=== PATIENT | female | born 1985 | race African-American/Black ===

== ENCOUNTER → 2016-10-14 10:15 | Outpatient (CLI) | payer MEDICAID ==
[~2016-10-14 10:15] MED LIST: FERROUS SULFAT325 MG PO; MOTRIN600 MG PO; PERCOCET 10/3251 TA1 PO
[2016-10-14 11:16] LABS: BASOPHILS 0.3 % (0.0-2.0); EOSINOPHILS 4.4 % (0-7); HEMATOCRIT 31.4 % (36.0-48.0); HEMOGLOBIN 9.8 g/dL (12-16); IMMATURE GRANULOCYTES 0.1 % (0-5); LYMPHOCYTES 16.6 % (15-50); MCHC 31.2 g/dL (31.0-37.0); MCV 83.3 fL (80.0-100.0); MEAN PLATELET VOLUME 10.6 fL (7.4-10.4); MONOCYTES 6.1 % (2-11); NEUTROPHILS 72.5 % (40-80); RBC 3.77 10x6/uL (4.00-5.40); RDW 15.7 % (11.5-14.5); WBC 8.8 10x3/uL (4.8-10.8)
[2016-10-14 11:22] LABS: PLATELET COUNT 234 10x3/uL (130-400)
[2016-10-14 11:33] LABS: CALC OSMOLALITY 269 mosm/kg (275-300); CALCIUM 8.2 mg/dL (8.5-10.1); CARBON DIOXIDE 24.3 mmol/L (21.0-32.0); CHLORIDE - SERUM 104 mmol/L (98-107); CREATININE - SERUM 0.8 mg/dL (0.6-1.3); POTASSIUM - SERUM 3.4 mmol/L (3.5-5.1); SODIUM 135 mmol/L (136-145); UREA NITROGEN 9 mg/dL (7-18); URIC ACID 4.9 mg/dL (2.6-7.2); eGFR NON AFRICAN AMERICAN 89 mL/min (90-120)
[2016-10-14 11:34] LABS: GLUCOSE 113 mg/dL (74-106)
[2016-10-28 08:19] VITALS: BMI 36.7
== END | disposition home or self-care (01) ==
LOC: D.LDO 10:15
PROVIDERS: Obstetrics & Gynecology
DX: Z34.83 Encounter for supervision of other normal pregnancy, third trimester (principal); Z3A.35 35 weeks gestation of pregnancy

== ENCOUNTER → 2016-10-17 12:35 | Outpatient (CLI) | payer MEDICAID ==
[2016-10-28 08:19] VITALS: BMI 36.7
== END | disposition home or self-care (01) ==
LOC: D.LDO 12:35
DX: O13.3 Gestational [pregnancy-induced] hypertension without significant proteinuria, third trimester (principal); Z3A.35 35 weeks gestation of pregnancy

== ENCOUNTER → 2016-10-21 10:20 | Outpatient (CLI) | payer MEDICAID ==
[2016-10-21 11:50] LABS: BASOPHILS 0.3 % (0.0-2.0); HEMATOCRIT 30.2 % (36.0-48.0); HEMOGLOBIN 9.5 g/dL (12-16); IMMATURE GRANULOCYTES 0.3 % (0-5); LYMPHOCYTES 15.4 % (15-50); MCH 26.1 pg (26.0-34.0); MCHC 31.5 g/dL (31.0-37.0); MEAN PLATELET VOLUME 10.3 fL (7.4-10.4); MONOCYTES 9.7 % (2-11); NEUTROPHILS 69.3 % (40-80); PLATELET COUNT 230 10x3/uL (130-400); RBC 3.64 10x6/uL (4.00-5.40); RDW 16.7 % (11.5-14.5); WBC 9.2 10x3/uL (4.8-10.8)
[2016-10-21 11:51] LABS: APPEARANCE SLT CLOUDY (CLEAR); BILIRUBIN NEGATIVE (NEGATIVE); COLOR YELLOW (YELLOW); GLUCOSE NEGATIVE (NEGATIVE); KETONE NEGATIVE (NEGATIVE); LEUKOCYTE ESTERASE NEGATIVE (NEGATIVE); NITRITE NEGATIVE (NEGATIVE); PROTEIN NEGATIVE (NEGATIVE); SPECIFIC GRAVITY 1.015 (1.005-1.020)
[2016-10-21 12:03] LABS: ALBUMIN 2.5 g/dL (3.4-5.0); BILIRUBIN - DIRECT 0.05 mg/dL (0.00-0.30); BILIRUBIN - INDIRECT 0.16 mg/dL (0.00-1.00); BILIRUBIN - TOTAL 0.21 mg/dL (0.2-1.3); PROTEIN - SERUM 5.9 g/dL (6.4-8.2); URIC ACID 4.9 mg/dL (2.6-7.2)
[2016-10-21 13:04] LABS: CALC OSMOLALITY 276 mosm/kg (275-300); CALCIUM 8.6 mg/dL (8.5-10.1); CARBON DIOXIDE 27.9 mmol/L (21.0-32.0); CHLORIDE - SERUM 106 mmol/L (98-107); CREATININE - SERUM 0.8 mg/dL (0.6-1.3); GLUCOSE 98 mg/dL (74-106); SODIUM 140 mmol/L (136-145); UREA NITROGEN 7 mg/dL (7-18); eGFR NON AFRICAN AMERICAN 89 mL/min (90-120)
[2016-10-23 11:51] LABS: PROTEIN - URINE 17.7 mg/dL (0.0-11.9)
[2016-10-28 08:19] VITALS: BMI 36.7
== END | disposition home or self-care (01) ==
LOC: D.LDO 10:20
PROVIDERS: Obstetrics & Gynecology
DX: O16.3 Unspecified maternal hypertension, third trimester (principal); Z3A.36 36 weeks gestation of pregnancy

== ENCOUNTER → 2016-10-24 10:25 | Outpatient (CLI) | payer MEDICAID ==
[2016-10-24 10:50] LABS: APPEARANCE HAZY (CLEAR); BILIRUBIN NEGATIVE (NEGATIVE); COLOR YELLOW (YELLOW); GLUCOSE NEGATIVE (NEGATIVE); KETONE NEGATIVE (NEGATIVE); LEUKOCYTE ESTERASE NEGATIVE (NEGATIVE); NITRITE NEGATIVE (NEGATIVE); PROTEIN NEGATIVE (NEGATIVE); SPECIFIC GRAVITY 1.015 (1.005-1.020); UROBILINOGEN NORMAL (NORMAL)
[2016-10-28 08:19] VITALS: BMI 36.7
== END | disposition home or self-care (01) ==
LOC: D.LDO 10:25
PROVIDERS: Obstetrics & Gynecology
DX: Z34.93 Encounter for supervision of normal pregnancy, unspecified, third trimester (principal); Z3A.36 36 weeks gestation of pregnancy

== ENCOUNTER → 2016-10-26 12:30 | Outpatient (CLI) | payer MEDICAID ==
[2016-10-28 08:19] VITALS: BMI 36.7
== END | disposition home or self-care (01) ==
LOC: D.LDO 12:30
DX: O16.3 Unspecified maternal hypertension, third trimester (principal); Z3A.36 36 weeks gestation of pregnancy

== ENCOUNTER 2016-10-28 08:01 | Inpatient (IN) | payer MEDICAID ==
[~2016-10-28] VITALS: Ht 170.2 cm; Wt 106.1 kg
[2016-10-28] MEDS ORDERED: FERROUS SULFAT325 MG PO (08:17)
[2016-10-28 08:19] VITALS: BP 142/87; Ht 170.2 cm; Wt 106.1 kg
[2016-10-28 09:31] LABS: HEMATOCRIT 32.3 % (36.0-48.0); HEMOGLOBIN 10.2 g/dL (12-16); MCH 25.9 pg (26.0-34.0); MCHC 31.6 g/dL (31.0-37.0); RBC 3.94 10x6/uL (4.00-5.40); RDW 16.2 % (11.5-14.5); WBC 10.6 10x3/uL (4.8-10.8)
[2016-10-28 12:42] LABS: UDS - AMPHET NEGATIVE QUAL (NEGATIVE); UDS - BARB NEGATIVE QUAL (NEGATIVE); UDS - BENZO NEGATIVE QUAL (NEGATIVE); UDS - COCAINE NEGATIVE QUAL (NEGATIVE); UDS - METH NEGATIVE QUAL (NEGATIVE); UDS - OPIATE NEGATIVE QUAL (NEGATIVE); UDS - PCP NEGATIVE QUAL (NEGATIVE); UDS - THC NEGATIVE QUAL (NEGATIVE)
[2016-10-28 17:04] VITALS: BP 133/83
[2016-10-28 17:04] LABS: BASOPHILS 0.3 % (0.0-2.0); EOSINOPHILS 3.5 % (0-7); HEMATOCRIT 33.4 % (36.0-48.0); HEMOGLOBIN 10.5 g/dL (12-16); IMMATURE GRANULOCYTES 0.2 % (0-5); LYMPHOCYTES 23.7 % (15-50); MCH 25.9 pg (26.0-34.0); MCHC 31.4 g/dL (31.0-37.0); MCV 82.5 fL (80.0-100.0); MEAN PLATELET VOLUME 10.7 fL (7.4-10.4); MONOCYTES 7.4 % (2-11); NEUTROPHILS 64.9 % (40-80); PLATELET COUNT 214 10x3/uL (130-400); RBC 4.05 10x6/uL (4.00-5.40); RDW 16.4 % (11.5-14.5); WBC 8.8 10x3/uL (4.8-10.8)
--- NOTE | 2016-10-28 17:17 | NUR ---
PT IS RECEIVED FROM RECOVERY ROOM. GEN- AWAKE AND ALERT. LUNGS-CLEAR. HEART- RRR. ABD -SOFT, WITH TENDERNESS NOTED. BIKINI LINE INCISION WITH PRIMAPORE DRESSING. CLEAN, DRY, INTACT. AKBAR PAD WITH SMALL LOCIA RUBRA. EXT SCD'S INTACT. IV IS NOTED R HAND, PATENT. SALINE LOCK L AC PATENT. TURNER INTACT AND SECURED TO R THIGH. BED IS LOW. CALL LIGHT IN REACH. SIDE RAILS UP X 2.
--- NOTE | 2016-10-28 18:00 | NUR ---
PT ART EDUCATION PROFESSOR LIGHT. STATES SHE THREW UP WATER SHE WAS DRINKING. APPROX 300 ML NOTED IN BLUE BAG. JODY RN ADMINISTERED ZOFRAN IVP. CHANGED PTS BEDDING AND BLUE AND PINK PADS WITH ASSISTANCE OF LESLIE LOJA. LARGE AMOUNT OF LOCHIA RUBRA NOTED TO BOTTOM SHEET WITH 3 LARGE CLOTS. PT TOLERATED WELL. PT DENIES OTHER NEEDS AT THIS TIME. BED LOW. PHONE AND CALL LIGHT IN REACH. SIDE RAILS UP X2.
[2016-10-28 19:18] VITALS: BP 134/77
--- NOTE | 2016-10-28 19:18 | NUR ---
RCVD PT FROM Tamir GAGE, RN DAY SHIFT. PT SITTING UP IN BED HOLDING . FAMILY AT BEDSIDE. SAMMIE BUSTOS, RN TO ROOM AT THIS TIME TO TAKE INFANT TO NURSERY FOR ASSESSMENT. PT VERBALIZES UNDERSTANDING OF POC. SHIFT ASSESSMENT COMPLETED AT THIS TIME. BREATH SOUNDS CLEAR AND UNLABORED X2. BOWEL SOUNDS ACTIVE X3, HYPO IN LLQ. PT REPORTS FEELING NAUSEATED SINCE AM AFTER TAKING IRON PILL BEFORE COMING INTO L&D. ALSO REPORTS EMESIS @ APPROX 1800. PT STATES "I THINK I NEED TO EAT SOMETHING BECAUSE I TOOK THAT PILL ON AN EMPTY STOMACH AND I HAVEN'T EATEN ALL DAY." CHICKEN BROTH PROVIDED PER PT REQUEST. PT ADV TO TAKE SLOW SIPS AT THIS TIME. PT VERBALIZES UNDERSTANDING. SCD'S ON, CONNECTED TO PUMP. PUMP NOTED TO BE OFF, THIS RN TURNED ON SCD PUMP AND PUMP NOTED TO BE FUNCTIONING PROPERLY. PT HAS PIV TO RT HAND WITH NS WITH 20 U PITOCIN INFUSING @ 125 ML/HR VIA PUMP, DEMEROL TELETYPEWRITER OPERATOR INFUSING WELL PER ORDERS. SEE EMAR. PT HAS BLI WITH BULKY DRESSING IN PLACE AT THIS TIME. DRESSING IS C/D/I. MOD LOCHIA RUBRA NOTED ON TOWEL @ PERINIUM. PERIPADS PLACED AT THIS TIME. PT RATES PAIN 8/10 CURRENT AND REPORTS CONSISTENT USE OF TELETYPEWRITER OPERATOR AT THIS TIME. WILL REVIEW EMAR AND PLAN TO GIVE TORADOL ORDERED. PT DENIES FURTHER NEEDS AT THIS TIME. BED LOW, WHEELS LOCKED, CL IN REACH AND FUNCTIONING. SIDE RAILS UP X2.
--- NOTE | 2016-10-28 19:45 | NUR ---
TORADOL 30MG/1ML GIVEN SLOW IVP PER ORDERS. SEE EMAR. PT DENIES FURTHER NEEDS AT THIS TIME. WILL CONTINUE POC.
[2016-10-28 20:00] LABS: BASOPHILS 0.2 % (0.0-2.0); EOSINOPHILS 0.9 % (0-7); HEMATOCRIT 32.7 % (36.0-48.0); HEMOGLOBIN 10.3 g/dL (12-16); IMMATURE GRANULOCYTES 0.4 % (0-5); LYMPHOCYTES 11.3 % (15-50); MCH 25.9 pg (26.0-34.0); MCHC 31.5 g/dL (31.0-37.0); MCV 82.2 fL (80.0-100.0); MEAN PLATELET VOLUME 10.6 fL (7.4-10.4); MONOCYTES 7.4 % (2-11); NEUTROPHILS 79.8 % (40-80); PLATELET COUNT 228 10x3/uL (130-400); RBC 3.98 10x6/uL (4.00-5.40); RDW 16.3 % (11.5-14.5)
[2016-10-28 20:05] LABS: WBC 13.1 10x3/uL (4.8-10.8)
[2016-10-28 20:15] VITALS: BP 135/74
--- NOTE | 2016-10-28 20:15 | NUR ---
PAIN REASSESSMENT COMPLETED. PT RATES PAIN 5/10 AND SAYS "IT'S EASING UP SOME NOW." PUMPS CLEARED AT THIS TIME. 100 OUTPUT AND INPUT 147 AT THIS TIME. PT DENIES FURTHER NEEDS. WILL CONTINUE TO MONITOR.
--- NOTE | 2016-10-28 21:15 | NUR ---
PT REFUSED LOPRESSOR DOSE AT THIS TIME DUE TO B/P OF 135/74. WILL CONTINUE TO MONITOR V/S. 100 OUTPUT NOTED AND PUMPS CLEARED AT THIS TIME WITH 147 INPUT NOTED. PT REPOSITIONS SELF IN BED. PT DENIES FURTHER NEEDS.
--- NOTE | 2016-10-28 21:19 | NUR ---
DR. DAY CALLED REQUESTING H/H RESULTS THAT WERE DRAWN AROUND 1999. RESULTS GIVEN TO DR. DAY.
--- NOTE | 2016-10-28 21:31 | NUR ---
PT'S BOYFRIEND TO NURSE DESK REPORTING PT THROWING UP. UPON ENTERING ROOM PT REPORTS FEELING "A BUBBLE POPPED OUT DOWN THERE." UPON ASSESSMENT LARGE AMOUNT OF BLOOD WITH SEVERAL QUARTER SIZED CLOTS NOTED TO BE PULLED BETWEEN PT AND TOWEL PLACED @ PT'S PERINEUM. PT STATES "I GOT SICK AND THREW UP AND JUST FELT IT GUSH OUT DOWN THERE." EMESIS BAG WAS HALF FULL AND EMPTIED INTO TOILET AT THIS TIME. CLEAN GOWN, BEDDING, CHUCKS, AND PADS PROVIDED. REPORT GIVEN TO DR WILEY ON PT'S BLEEDING AND N/V. PER DR WILEY PHENERGAN IM 25MG/1ML ORDERED. SEE EMAR. WILL CONTINUE TO MONITOR. PT DENIES FURTHER NEEDS AT THIS TIME.
--- NOTE | 2016-10-28 22:23 | NUR ---
V/S ASSESSED AT THIS TIME. OUTPUT NOTED TO BE 30. INPUT 179 TOTAL. PUMPS CLEARED AT THIS TIME. PT ENCOURAGED TO DRINK WATER. PT REFUSES TAP WATER AND STATES, "I'LL WAIT FOR MY BOYFRIEND TO GET BACK WITH MY BOTTLED WATER." PT DENIES PAIN OR NEEDS. WILL CONTINUE TO MONITOR.
--- NOTE | 2016-10-28 23:28 | NUR ---
V/S ASSESSED AT THIS TIME. PT NOTED TO BE SHIVERING AND STATES "IT'S BECAUSE I ATE A LOT OF ICE." 10 ML OUTPUT OVER LAST HR NOTED. REPORT GIVEN TO DR WILEY. PER DR WILEY, STOP PITOCIN, GIVE 500ML LR BOLUS AND RUN LR @ 125ML/HR THEREAFTER. WILL CONTINUE TO MONITOR.
[2016-10-28 23:30] VITALS: BP 149/62
--- NOTE | 2016-10-29 01:20 | NUR ---
PT LYING ON BACK IN BED. HOB 30 DEGREES. PT RESTING, EYES CLOSED, RESP EVEN & UNLABORED. PT LEFT UNDISTURBED AT THIS TIME. WILL CONTINUE TO MONITOR.
--- NOTE | 2016-10-29 03:36 | NUR ---
ROUNDS MADE. PT SITTING UP IN BED HOLDING INFANT AT THIS TIME. FOB AT BEDSIDE. PT DENIES PAIN OR NEEDS AT THIS TIME. ONLY THAT SHE'S READY TO GET UP OUT OF BED. PT EDU ON POC. PT VERBALIZES UNDERSTANDING. PUMPS CLEARED AT THIS TIME. PT DENIES FURTHER NEEDS. WILL CONTINUE POC.
[2016-10-29 04:07] VITALS: BP 137/76
--- NOTE | 2016-10-29 04:41 | NUR ---
PT C/O BEING UNCOMFORTABLE IN THE BED AND WANTING TO GET UP. ADV PT THERE ARE NO ORDERS TO ALLOW HER TO GET OOB AT THIS TIME, BUT CAN SIT UP IN BED. ASSISTED PT WITH REPOSITIONING HOB TO 90 DEGREES, REMOVED SCD'S TO ALLOW SKIN TO BREATH FOR 30 MINS AND REMOVED BLANKETS. PT STATES "THAT FEELS A LITTLE BETTER." ENCOURAGED PT TO GET SOME REST. PT VERBALIZED UNDERSTANDING AND IS AGREEABLE. WILL CONTINUE TO MONITOR.
[2016-10-29 05:15] LABS: RAPID PLASMA REAGIN Non Reactive (Non Reactive)
--- NOTE | 2016-10-29 05:52 | NUR ---
400 ML EMPTIED FROM UROMETER. TURNER BAG EMPTIED AT THIS TIME. PUMPS CLEARED AT THIS TIME. PT DENIES PAIN OR NEEDS AT THIS TIME. WILL CONTINUE TO MONITOR.
[2016-10-29 06:40] LABS: BASOPHILS 0.2 % (0.0-2.0); EOSINOPHILS 1.3 % (0-7); IMMATURE GRANULOCYTES 0.3 % (0-5); LYMPHOCYTES 13.5 % (15-50); MCH 25.6 pg (26.0-34.0); MCHC 31.4 g/dL (31.0-37.0); MCV 81.7 fL (80.0-100.0); MEAN PLATELET VOLUME 10.8 fL (7.4-10.4); MONOCYTES 5.1 % (2-11); NEUTROPHILS 79.6 % (40-80); PLATELET COUNT 215 10x3/uL (130-400); RDW 16.3 % (11.5-14.5); WBC 12.4 10x3/uL (4.8-10.8)
[2016-10-29 06:42] LABS: HEMATOCRIT 25.5 % (36.0-48.0); RBC 3.12 10x6/uL (4.00-5.40)
--- NOTE | 2016-10-29 07:30 | NUR ---
PT IS LYING IN BED THIS AM. PT IS READY TO GET UP OUT OF BED. GEN- AWAKE AND ALERT. LUNGS- CLEAR. HEART- RRR. ABD- SOFT, TENDER, BIKINI LINE INCISION CLEAN DRY AND DONAL INTACT. TURNER INTACT. IV PATENT R HAND WITH LR INFUSING @ 125 CC/HR. SCD'S INTACT. 1 + EDEMA LE. BED IS LOW. SIDE RAILS UP X 2 AND CALL LIGHT IN REACH.
--- NOTE | 2016-10-29 08:00 | NUR ---
IV SALINE LOCKED R HAND. TURNER D'CD. 700 CC DORI COLORED URINE. PT REQUESTED TO GET IN SHOWER. PT OUT OF BED TO SHOWER WITH SHOWER CHAIR. PT TOLERATED WELL. HELPED PT DRY OFF AND GET DRESSED. LOTION APPLIED TO LOWER EXTREMITIES. INCISION DRYED AND AKBAR PAD PLACED ACROSS INCISION. PERINEAL PADS ALSO PLACED WITH MESH PANTIES. NON SKID SOCKS APPLIED AND PT BACK TO BED.BED IS LOW. CALL LIGHT IN REACH AND SIDE RAILS UP X 2.
[2016-10-29 08:33] VITALS: BP 152/86
--- NOTE | 2016-10-29 08:45 | NUR ---
PT REQUESTED PAIN MEDISCATION. STATES HER PAIN IS A 10 IN HER BACK AND NECK. WARM TOWEL IN TRASH BAG PLACED AROUND HER NECK. PT STATES THAT IT FEELS GOOD. MOTRIN AND PERCOCET GIVEN PO.
--- NOTE | 2016-10-29 10:00 | NUR ---
PHARMACCY CONTACTED ABOUT RECEIVING HER BP MED. LOPRESSOR 50 MG GIVEN.
--- NOTE | 2016-10-29 10:02 | NUR ---
BABY IN ROOM. PT IS . AT BEDSIDE.
--- NOTE | 2016-10-29 10:19 | NUR ---
PT IS UP TO BATHROOM WITH ASSISTANCE.
--- NOTE | 2016-10-29 10:45 | NUR ---
PT VOIDED BUT TOOK OUT MEASURING DEVICE BECAUSE SHE THOUGHT SHE HAD TO HAVE A BM. SHE STATES SHE DID VOID QUITE A BIT.
--- NOTE | 2016-10-29 11:06 | NUR ---
PT REQUEST THAT SHE TAKE A NAP BEFORE RECEIVING BLOOD TRANSFUSION. OK'D
--- NOTE | 2016-10-29 11:41 | NUR ---
Eliseo Riversver 10/29/16 LE 9:35 S: Patient states she would like to try and breastfeed, unsure how. O: Patient lying in bed, states she is in pain but would like to try and nurse. Congratulated on delivered. Explain does take time and patience in the beginning. Explain how to hold for feeding, tummy to tummy, nose opposite of nipple. Explain feeding cues, feeding baby on demand will help with establishing her milk supply. Help with latching on the left breast at 10:09-10:14. Infant latched with mouth 140 degrees, round cheeks, sucking in a rocking motion. Infant came off of breast, patient will like and try again later, due to pain from . Nursery nurse came in to get infant for visit with pediatric doctor. Encouraged to try latching again for next feeding. Explain supply and demand and engorgement. Asked if she had any questions or concerns, all declined. Will follow up. A: Patient unsure if she would like to breastfeed, but is willing to try. P: Try latching infant to the breast at next feeding. Usha Rhodes, CLC
--- NOTE | 2016-10-29 13:30 | NUR ---
PT'S BLOOD WAS STARTED FOR TRANSFUSION. CHECKED BLOOD WITH LESLIE DEL CASTILLO. IV R HAND. VS 125/80 81 18 PULSE OX- 98. TRANSFUSION STARTED AT 3:50.
--- NOTE | 2016-10-29 13:34 | NUR ---
PT C/O ABDOMINAL CRAMPING OF "9" ON 0-10 PAIN SCALE. REQUESTS MOTRIN AND PERCOCET TOGETHER. MOTRIN 600 AND PERCOCET 10/325 GIVEN PO ORDERED. PT INSTRUCTED ON MEDS. VERBALIZES UNDERSTANDING.
--- NOTE | 2016-10-29 14:00 | NUR ---
PT CALLED NURSE TO THE ROOM HER IV SITE WAS BURNING AND BLOOD WAS LEAKIMG AROUND SITE. TRANSFUSION STOPPED. IV WAS D'CD. TOLD PT WE NEEDED TO RE SITE IV. PT REFUSED TO HAVE IV STARTED. STATES THAT HER INFILTRATED IV HURT TOO BAD. SHE ASKED ME TO CALL DR DAY. I CALLED DR DAY. I TOLD HIM THAT SHE REFUSED ANOTHER IV TO RECEIVE TRANSFUSION. HE STATES OK I GUESS SHE MADE HER CHOICE. RETURNED 1 UNIT OF PBRC'S TO LAB FOR DISPOSAL.
--- NOTE | 2016-10-29 14:46 | NUR ---
PT'S CAME TO GET ME. PT NEEDED ME IN BATHROOM. SHE SHOWS ME THAT SHE PASSED CLOTS. 2 MEDIUM SIZE CLOTS PASSED. WILL CONTINUE TO MONITOR.
[2016-10-29 14:54] LABS: BASOPHILS 0.3 % (0.0-2.0); EOSINOPHILS 2.3 % (0-7); HEMATOCRIT 24.4 % (36.0-48.0); HEMOGLOBIN 7.7 g/dL (12-16); IMMATURE GRANULOCYTES 0.3 % (0-5); LYMPHOCYTES 14.3 % (15-50); MCH 26.5 pg (26.0-34.0); MCHC 31.6 g/dL (31.0-37.0); MCV 83.8 fL (80.0-100.0); MEAN PLATELET VOLUME 10.8 fL (7.4-10.4); MONOCYTES 10.8 % (2-11); PLATELET COUNT 231 10x3/uL (130-400); RBC 2.91 10x6/uL (4.00-5.40); RDW 16.4 % (11.5-14.5); WBC 11.2 10x3/uL (4.8-10.8)
--- NOTE | 2016-10-29 14:57 | NUR ---
LAB IS HERE TO DRAW H & H.
--- NOTE | 2016-10-29 16:02 | NUR ---
PT IS SLEEPING. BED IS LOW, CALL LIGHT IN REACH AND SIDE RAILS UP X 2.
[2016-10-29 16:25] VITALS: BP 134/82
--- NOTE | 2016-10-29 16:26 | NUR ---
RECEIVED PT SITTING UP IN BED. FEEDING INFANT AT THIS TIME. VSS. PT DENIES C/O OR NEEDS A THIS TIME.
--- NOTE | 2016-10-29 17:48 | NUR ---
PT C/O ABDOMINAL CRAMPING OF "9" ON 0-10 PAIN SCALE. PERCOCET 10/325 GIVEN PO ORDERED. PT INSTRUCTED ON MED. VERBALIZES UNDERSTANDING. PT OOB AND AMB IN ROOM AT THIS TIME.
--- NOTE | 2016-10-29 18:54 | NUR ---
PT SITTING UP IN BED. VISITS WITH MEDICAL RECORDS PERSONNEL. STATES PAIN NOW "8" ON 0-10 PAIN SCALE. STATES "IT'S BETTER". DENIES NEEDS OR C/O.
--- NOTE | 2016-10-29 19:12 | NUR ---
RCVD PT FROM Desmond RIZO RN. PT SITTING UP IN BED EATING FRIED CHICKEN. DENIES NEEDS. WILL RETURN FOR ASSESSMENT. BED LOW, WHEELS LOCKED, CL IN REACH, SIDE RAILS UP X2.
--- NOTE | 2016-10-29 19:23 | NUR ---
PT C/O ABD "FAT FALLING AND IT HURTS WHEN I GET UP AND TRY TO WALK." PT REQUESTS "SOMETHING LIKE A GIRDLE TO HELP HOLD IT IN." WILL ALLOW PT TO FINISH MEAL AND THEN COMPLETE ASSESSMENT.
[2016-10-29 19:34] VITALS: BP 134/90
--- NOTE | 2016-10-29 19:34 | NUR ---
SHIFT ASSESSMENT COMPLETED AT THIS TIME. BREATH SOUNDS CLEAR & UNLABORED X2. S1, S2, FUNDUS FIRM AND BELOW UMBILICUS. BLI WITH DONAL C/D/I. PT REPORTS BLEEDING INCREASE AND "LOTS OF CLOTS" WHEN SHE USES THE RESTROOM. PT REPORTS NOT CHANGING PERIPADS FOR "A LITTLE OVER AN HR NOW." UPON ASSESSMENT SMALL LOCHIA RUBRA NOTED ON PERIPAD WITH NO CLOTS PRESENT. ADV PT THAT SOME BLEEDING AFTER DELIVERY IS NORMAL AND TO BE EXPECTED. PT REPORTS CRAMPING FEELING. ADV PT THAT THE CRAMPING OF THE UTERUS IS NORMAL AFTER DELIVERY. PT VERBALIZED UNDERSTANDING. GENERALIZED EDEMA NOTED AT BLE. PT REQUESTS TO SHOWER. TOWELS, GOWN, PANTIES PROVIDED. ABD BINDER PROVIDED PER ORDERS AND PT REQUEST. PT WILL CALL AFTER SHOWER FOR ASSISTANCE WITH PLACING ABD BINDER. PT PLANS TO TAKE MEDS AT PM AND THEN SLEEP. REPORTS NOT SLEEPING ALL DAY OR THE PREVIOUS NIGHT. PT DENIES FURTHER NEEDS AT THIS TIME. WILL CONTINUE POC.
--- NOTE | 2016-10-29 20:11 | NUR ---
PT RINGS BATHROOM CL. THIS RN & Desmond WHEELER RN TO ROOM. PT REQUESTS & RECEIVES CLEAN MESH PANTIES. ASSISTED PT APPLYING ABD BINDER. PT DENIES PAIN OR FURTHER NEEDS AT THIS TIME.
--- NOTE | 2016-10-29 20:12 | NUR ---
PT REPORTS PASSING CLOTS. SEVERAL QUARTER SIZE CLOTS NOTED TO BE ON TOWEL IN BATHROOM. PT REPORTS "THAT'S JUST WHAT I COULD CATCH COMING OUT WHILE I WAS IN THE SHOWER." ADV PT WILL CONTINUE TO MONITOR BLEEDING AND TO REPORT IF SHE IS SATURATING HER PERIPADS IN LESS THAN AN HR. PT VERBALIZES UNDERSTANDING AND REPORTS THAT SHE DOESN'T THINK SHE HAS BEEN BLEEDING THAT MUCH. WILL CONTINUE TO MONITOR. PT DENIES PAIN OR FURTHER NEEDS AT THIS TIME.
--- NOTE | 2016-10-29 21:36 | NUR ---
UPON REVIEWING CHART BLOOD CONSENT NOTED TO NOT "CONSENT/REFUSE" SPECIFIED. REVIEWED THIS CONSENT WITH PT AND PT CIRCLED "CONSENT" AT THIS TIME. THIS RN SIGNED & WITNESSED. PT DENIES ANY FURTHER NEEDS AT THIS TIME. WILL CONTINUE POC.
--- NOTE | 2016-10-29 21:36 | NUR ---
PT REQUESTS & RECEIVES MOTRIN 60OMG X1 TAB AND PERCOCET 10/325MG X1 TAB, BOTH GIVEN AT THE SAME TIME PER PT REQUEST FOR PAIN RATED 9/10 IN ABD DESCRIBED CRAMPING AND INCISIONAL PAIN AT THIS TIME. PT DENIES FURTHER NEEDS. WILL CONTINUE POC.
--- NOTE | 2016-10-29 22:21 | NUR ---
PT RESTING, EYES CLOSED, RESP EVEN & UNLABORED. FOB RESTING ON BEDSIDE COUCH. PT LEFT UNDISTURBED AT THIS TIME.
[2016-10-30 00:29] VITALS: BP 123/65
--- NOTE | 2016-10-30 00:29 | NUR ---
PT RESTING ON BACK, HOB 30 DEGREES, FOB ASLEEP ON BEDSIDE COUCH. PT AROUSES TO VERBAL STIMULI. V/S ASSESSED AT THIS TIME. PT DENIES PAIN OR NEEDS AT THIS TIME. WILL CONTINUE POC.
--- NOTE | 2016-10-30 02:04 | NUR ---
LYING ON BACK WITH EYES CLOSED. RESPIRATIONS REGULAR.
--- NOTE | 2016-10-30 03:54 | NUR ---
ROUNDS MADE. PT RESTING ON BACK, HOB 30 DEGREES. EYES CLOSED, RESP EVEN & UNLABORED. FOB ASLEEP ON BEDSIDE COUCH. PT LEFT UNDISTURBED AT THIS TIME. WILL CONTINUE TO MONITOR.
--- NOTE | 2016-10-30 06:05 | NUR ---
PT RESTING, EYES CLOSED, RESP EVEN & UNLABORED. PT LEFT UNDISTURBED AT THIS TIME.
--- NOTE | 2016-10-30 07:20 | NUR ---
ASSESSED PT. LUNG SOUNDS CLEAR. HEART RRR. ABDOMIN SLIGHTLY ROUNDED AND TENDER. FUNDUS U2 AND FIRM. LIGHT LOCHIA WITH A QUARTER SIZE CLOT VISIABLE IN TOILET. INCISION CLEAN DRY AND INTACT WITH PERIPAD IN PLACE. SOME ENDEMA NOTED AT B[facility]. PT SOMEWHAT TEARY AND STATES THAT SHE HOPES TO GET SOME REST TODAY. STATES THAT SHE HOPES THAT SHE DOESN'T 'HAVE TO GET ANY BLOOD TODAY'. REASSURED HER THAT BLOOD WOULD ONLY BE GIVEN IF SHE NEEDED IT AND THAT THE DOCTOR WOULD MAKE THE CALL ON THAT ACCORDING TO THE LAB RESULTS. SHE TOOK SOME DEEP BREATHS AND CALMED CONSIDERABLY. PROVIDED FRESH WATER AND ICE. FOB AT BEDSIDE. STATES NO FURTHER NEEDS AT THIS TIME. WILL CONTINUE TO MONITOR.
[2016-10-30 07:25] VITALS: BP 145/88
--- NOTE | 2016-10-30 07:50 | NUR ---
PATIENT IS SITTING UP IN HER BED, HOLDING INFANT AND TALKING ON THE PHONE. SHE'S USED THE CALL LIGHT TO REQUEST PAIN MEDICATION. NURSERY NURSE IS IN THE ROOM, FOB IS IN THE RESTROOM. GUEST TRAY DELIVERED PER HER REQUEST WELL. HER CALL LIGHT IS WITHIN REACH. ASKED THAT SHE USE IT TO CALL WITH ANY FURTHER NEEDS.
--- NOTE | 2016-10-30 08:00 | NUR ---
PROVIDED TOWELS AND BODY WASH. PROVIDED PAIN MEDICATIONS ORDERED AND REQUESTED. STATES NO FURTHER NEEDS AT THIS TIME WILL CONTINUE TO MONITOR.
--- NOTE | 2016-10-30 09:30 | NUR ---
REASSESSED PT PAIN LEVEL TO BE AN 8 ON NUMERIC SCALE. PT HAS RELAXED FACE AND IS SMILING. CALLED PHARM TO REQUEST LOPRESSOR MEDICATION FOR PT. STATED THAT THEY WILL DELIVER. PROVIDED PT WITH CRUSHED ICE. LAB HAD BEEN TO ROOM. PT TOLERATED WELL. STATES NO FURTHER NEEDS AT THIS TIME.
[2016-10-30 09:49] LABS: BASOPHILS 0.2 % (0.0-2.0); EOSINOPHILS 4.3 % (0-7); HEMATOCRIT 24.9 % (36.0-48.0); HEMOGLOBIN 7.8 g/dL (12-16); IMMATURE GRANULOCYTES 0.3 % (0-5); LYMPHOCYTES 19.5 % (15-50); MCH 25.7 pg (26.0-34.0); MCHC 31.3 g/dL (31.0-37.0); MCV 82.2 fL (80.0-100.0); MEAN PLATELET VOLUME 10.2 fL (7.4-10.4); MONOCYTES 6.7 % (2-11); PLATELET COUNT 249 10x3/uL (130-400); RBC 3.03 10x6/uL (4.00-5.40); RDW 16.4 % (11.5-14.5); WBC 11.2 10x3/uL (4.8-10.8)
--- NOTE | 2016-10-30 10:00 | NUR ---
Lorena Gayle .20.17 LE@ 9:15 S: Patient states she is doing ok, trying with . O: Patient sitting up in bed, semi reclined watching television. does take time in the beginning. Every experience is different, just be patient. Patient states she was informed will have to stay in hospital, patient starts crying. It can be difficult to hear that, we want the best for both mother and , to observe feedings, will help ensure is gaining, which is a great thing, especially when they leave the hospital. She can try nursing for a few minutes, if she likes, then provide recommended amount of formula. She is doing a great job, just take things one feeding at a time. Nursery nurse came in room, mother was given infant to hold, mother loving talks to . Encouraged to ask for help as needed with anything. Explain how to help with engorgement and hand expression. Will follow up. Asked if any questions, concerns, or needs, client states not at this time. A: Patient emotional about infant having to stay in hospital. P: Rest as needed, ask for help with nursing if needed. Usha Rhodes, CLC
--- NOTE | 2016-10-30 10:30 | NUR ---
CALLED DR. DAY WITH RESULTS OF LAB. INCREASE IN H&H AND STATES WE WILL HOLD OFF ON GIVING A UNIT OF BLOOD UNLESS THERE IS A FALL IN H&H. INFORMED PT WHO WAS HAPPY. EXPLAINED THE ROOMING IN TO PT THE INFANT WILL NOT BE DISCHARGED AND SHE STATES UNDERSTANDING AND THE WISH TO STAY A ROOM IN PT. STATES NO FURTHER NEEDS AT THIS TIME. WILL CONTINUE TO MONITOR.
--- NOTE | 2016-10-30 10:55 | NUR ---
WENT TO PHARMACY AND PICKED UP LOPRESOR MED. RETURNED AND ADMINISTERED TO PT ORDERED AND REQUESTED. PT HOLDING TALKING AND ROCKING INFANT.
--- NOTE | 2016-10-30 11:45 | NUR ---
PT SITTING IN BED WITH TRANSPORT NURSE IN ROOM WITH FOB FEEDING BOTTLE. PT SMILING AND TALKING. 'I WANT TO MAKE SURE SHE IS GETTING ENOUGH SO SHE CAN GROW'. PROVIDED UNDERGARMENTS AND PADS. STATES NO NEEDS AT THIS TIME.
--- NOTE | 2016-10-30 12:20 | NUR ---
PT UP TO SHOWER. FULL LINEN CHANGE AT THIS TIME.
--- NOTE | 2016-10-30 13:36 | NUR ---
PT LYING IN BED STATES PAIN 9 ON NUMERIC SCALE. PROVIDED PAIN MEDICATION REQUESTED AND ORDERED. FRESH ICE WATER ALSO PROVIDED. SITTING IN BED IN HER OWN CLOTHES, HAIR COMBED AND CLEAN. STATES NO FURTHER NEEDS AT THIS TIME. WILL CONTINUE TO MONITOR.
--- NOTE | 2016-10-30 14:20 | NUR ---
PT LYING IN BED WITH FOB AT BEDSIDE WAKING TO FEED. STATES THAT THE PAIN IS 'BETTER AND NOW IT IS DOWN TO AN 8'. HER FACE IS RELAXED AND SHE IS SMILING. STATES NO OTHER NEEDS AT THIS TIME. WILL CONTINUE TO MONITOR.
--- NOTE | 2016-10-30 15:07 | NUR ---
PT UP TO BR. STATES THAT SHE IS 'HAVING A LOT OF GAS'. ENCOURAGED HER TO PASS THE GAS AND DON'T TRY TO RETAIN IT. PROVIDED TISSUE. STATES NO FURTHER NEEDS
[2016-10-30 15:47] VITALS: BP 114/66
--- NOTE | 2016-10-30 16:00 | NUR ---
PROVIDED PRESCRIPTIONS TO PT TO HAVE FILLED IN ORDER TO ROOM IN. PT CALLED FOB AND HE WILL BE HERE TO PICK THEM UP AND TAKE THEM TO FILL AT [facility]. PT PROVIDED WITH COFFEE. TALKED FURTHER ABOUT THE ROOMING IN PROCESS. NO LEAVING HOSPITAL FOR PROLONGED PERIODS OF TIME, PT RESPONSIBLE FOR OWN MEDICATION ADMINISTRATION, PT STILL RECEIVES HER MEALS AND HER RESPONSIBILITY FOR CARE, BONDING AND FEEDING REMAIN THE SAME. STATES UNDERSTANDING AND THAT SHE HAS NO FURTHER NEEDS AT THIS TIME. WILL DISCHARGE WHEN MEDICATION ARRIVES BACK TO ROOM.
[2016-10-30] MEDS ORDERED: PERCOCET 10/3251 TA1 PO (17:28)
[2016-10-30] MEDS ORDERED: MOTRIN600 MG PO (17:29)
--- NOTE | 2016-10-30 18:00 | NUR ---
PT FOB HAS RETURNED WITH MEDICATION AND DISCHARGE WAS GONE OVER WITH BOTH TO BE ROOMED IN. STATES UNDERSTANDING OF ROOMING IN. WILL NOW PROVIDE OWN MEDICATION NEEDS.
--- NOTE | 2016-11-10 14:40 | OP ---
PATIENT NAME: CALVIN DAVIES MEDICAL RECORD: [id number] :86 LOCATION:[facility].1220 ADMISSION DATE:10/28/16 SURGEON: PETER ECKERT MD DATE OF OPERATION: 10/28/2016 PREOPERATIVE DIAGNOSES: 1. Term intrauterine at 37 weeks. 2. Severe chronic hypertension. 3. History of previous section. POSTOPERATIVE DIAGNOSES: 1. Term intrauterine at 37 weeks. 2. Severe chronic hypertension. 3. History of previous section. PROCEDURE: A repeat low transverse section. SURGEON: Peter Eckert MD ESTIMATED BLOOD LOSS: 1000 cc. ANESTHESIA: Via spinal. INTRAVENOUS FLUIDS: Per anesthesia record. SPECIMENS: Placenta and cord for gases. FINDINGS: 1. Grossly normal appearing adnexa bilaterally. 2. Placenta delivered manually intact, 3-vessel cord noted. 3. Viable female , Apgars 9 at 1 and 9 at 5. COMPLICATIONS: None apparent. PROCEDUR IN DETAIL: The patient taken to the operating room where spinal anesthesia was achieved without difficulty. The patient was then prepped and draped in normal sterile fashion in the dorsal supine position. SCDs were on and functioning. Pierson catheter had been placed and was draining normally. At this point, a repeat Pfannenstiel skin incision was made, extended downward to the underlying subcutaneous fat to level of the fascia, which was then nicked in the midline and excised bilaterally using the Patrick scissors. The superior and inferior aspects of the fascial incision were then grasped with Alison clamps times 2, tented upward, and sharply dissected from the underlying rectus muscle. The rectus muscles were then in the midline and intraperitoneal entry was noted to be present. The bladder flap was created by excising the anterior leaf of the broad ligament across the lower uterine segment. The uterine incision was then made and the uterus was entered bluntly using a finger. The uterine incision was extended superiorly and inferiorly using the Pelosi method. The 's head was found to be extended and at this point, a vacuum was placed on the occiput, correction to head flexion was performed with atraumatic delivery of the . The vacuum was removed immediately upon delivery and no trauma was noted. No pop offs, application time approximately 10 seconds. Following delivery of the baby, the baby was bulb suctioned, cord clamped times 2, cut, and the was handed to awaiting nursery team. At this point, the placenta was removed manually. Uterus was exteriorized, cleared OPERATIVE REPORT [id number] DAVIES,ROSIA of all clots and debris and the uterine incision was repaired with 0 Vicryl in a running locked fashion times 2. Good hemostasis was noted. Posterior cul-de-sac was then thoroughly irrigated and the uterus was returned into the pelvis. The anterior cul-de-sac was thoroughly irrigated and the uterine incision was checked for hemostasis and found to be hemostatic. Counts were correct times 2. The fascia was repaired with 0 loop PDS times 1 and the skin repaired with ana. The patient tolerated the procedure well, transferred to postanesthesia recovery stable without incident. TRANSINT:[id number] Voice Confirmation ID: [id number] DOCUMENT ID: [id number] PETER ECKERT MD at 1437 CC: [id number] DICTATION DATE: 10/28/16 1622 MIXING PLANT DUMPER: 10/28/16 1706 ADM IN [place] [id number] [place] [address]
== END 2016-10-30 18:05 | disposition home or self-care (01) | DRG 766 ==
LOC: D.WS 08:01 → D.LD 08:01 → D.SDCHOLD 12:00 → D.WS 16:44 → D.LD 10-29 17:44
PROVIDERS: ADMIT Obstetrics & Gynecology
PROC: 10D00Z1 Extraction of Products of Conception, Low, Open Approach (ICD-10-PCS; principal; 2016-10-28 12:00)
DX: O16.4 Unspecified maternal hypertension, complicating childbirth (principal); Z3A.37 37 weeks gestation of pregnancy; Z37.0 Single live birth; O99.324 Drug use complicating childbirth; F12.90 Cannabis use, unspecified, uncomplicated; O99.824 Streptococcus B carrier state complicating childbirth; O34.219 Maternal care for unspecified type scar from previous cesarean delivery; O99.334 Smoking (tobacco) complicating childbirth; F17.200 Nicotine dependence, unspecified, uncomplicated

== ENCOUNTER 2019-10-18 17:37 | Outpatient (CLI) | payer MEDICAID ==
[2016-10-28 08:19] VITALS: BMI 36.7
[2019-10-18 18:32] LABS: BASOPHILS 0.3 % (0-2); EOSINOPHILS 4.3 % (0-7); HEMATOCRIT 35.9 % (36.0-48.0); HEMOGLOBIN 11.5 g/dL (12-16); IMMATURE GRANULOCYTES 0.2 % (0-5); MCH 26.7 pg (26.0-34.0); MCV 83.5 fL (80.0-100.0); MEAN PLATELET VOLUME 9.9 fL (7.4-10.4); NEUTROPHILS 73.2 % (40-80); PLATELET COUNT 243 10x3/uL (130-400); RDW 15.2 % (11.5-14.5); WBC 10.6 10x3/uL (4.8-10.8)
[2019-10-18 19:11] LABS: CALC OSMOLALITY 274 mosm/kg (275-300); CALCIUM 8.8 mg/dL (8.5-10.1); CARBON DIOXIDE 22.7 mmol/L (21.0-32.0); CHLORIDE - SERUM 105 mmol/L (98-107); CREATININE - SERUM 0.9 mg/dL (0.6-1.3); GLUCOSE 105 mg/dL (74-106); POTASSIUM - SERUM 3.9 mmol/L (3.5-5.1); SODIUM 138 mmol/L (136-145); UREA NITROGEN 11 mg/dL (7-18); eGFR NON AFRICAN AMERICAN 76 mL/min (90-120)
[2019-10-18 19:20] LABS: ALBUMIN 2.7 g/dL (3.4-5.0); ALKALINE PHOSPHATASE 87 U/L (46-116); ALT (SGPT) 24 U/L (10-68); BILIRUBIN - DIRECT 0.09 mg/dL (0.00-0.30); BILIRUBIN - INDIRECT 0.05 mg/dL (0.00-1.00); BILIRUBIN - TOTAL 0.14 mg/dL (0.2-1.3); PROTEIN - SERUM 6.7 g/dL (6.4-8.2)
[2019-10-18 21:57] LABS: APPEARANCE CLEAR (CLEAR); BILIRUBIN NEGATIVE (NEGATIVE); COLOR YELLOW (YELLOW); GLUCOSE NEGATIVE (NEGATIVE); KETONE NEGATIVE (NEGATIVE); NITRITE NEGATIVE (NEGATIVE); PROTEIN NEGATIVE (NEGATIVE); SPECIFIC GRAVITY 1.025 (1.005-1.020); UROBILINOGEN NORMAL (NORMAL)
== END 2019-10-18 22:16 | disposition home or self-care (01) ==
LOC: D.LDO 17:37
PROVIDERS: ATTEND Obstetrics & Gynecology
DX: O26.899 Other specified pregnancy related conditions, unspecified trimester (principal); Z3A.00 Weeks of gestation of pregnancy not specified; R03.0 Elevated blood-pressure reading, without diagnosis of hypertension

== ENCOUNTER → 2019-10-20 13:42 | Outpatient (CLI) | payer MEDICAID ==
[2016-10-28 08:19] VITALS: BMI 36.7
[2019-10-20 19:34] LABS: UDS - AMPHET NEGATIVE QUAL (NEGATIVE); UDS - BARB NEGATIVE QUAL (NEGATIVE); UDS - BENZO NEGATIVE QUAL (NEGATIVE); UDS - COCAINE NEGATIVE QUAL (NEGATIVE); UDS - OPIATE NEGATIVE QUAL (NEGATIVE); UDS - PCP NEGATIVE QUAL (NEGATIVE); UDS - THC NEGATIVE QUAL (NEGATIVE)
== END | disposition home or self-care (01) ==
LOC: D.LDO 13:42
PROVIDERS: Obstetrics & Gynecology; ATTEND Obstetrics & Gynecology
DX: O16.3 Unspecified maternal hypertension, third trimester (principal); Z3A.35 35 weeks gestation of pregnancy

== ENCOUNTER → 2019-10-25 08:55 | Outpatient (CLI) | payer MEDICAID ==
[2016-10-28 08:19] VITALS: BMI 36.7
[2019-10-25 09:43] LABS: CALC OSMOLALITY 273 mosm/kg (275-300); CALCIUM 8.4 mg/dL (8.5-10.1); CARBON DIOXIDE 26.8 mmol/L (21.0-32.0); CHLORIDE - SERUM 106 mmol/L (98-107); CREATININE - SERUM 0.8 mg/dL (0.6-1.3); GLUCOSE 88 mg/dL (74-106); POTASSIUM - SERUM 3.7 mmol/L (3.5-5.1); SODIUM 138 mmol/L (136-145); UREA NITROGEN 11 mg/dL (7-18); eGFR NON AFRICAN AMERICAN 87 mL/min (90-120)
[2019-10-25 09:44] LABS: BASOPHILS 0.2 % (0-2); EOSINOPHILS 5.2 % (0-7); HEMATOCRIT 32.3 % (36.0-48.0); HEMOGLOBIN 10.3 g/dL (12-16); IMMATURE GRANULOCYTES 0.1 % (0-5); LYMPHOCYTES 21.5 % (15-50); MCH 26.3 pg (26.0-34.0); MCHC 31.9 g/dL (31.0-37.0); MCV 82.4 fL (80.0-100.0); MEAN PLATELET VOLUME 9.7 fL (7.4-10.4); PLATELET COUNT 227 10x3/uL (130-400); RBC 3.92 10x6/uL (4.00-5.40); RDW 15.3 % (11.5-14.5); WBC 9.7 10x3/uL (4.8-10.8)
[2019-10-25 09:49] LABS: ALBUMIN 2.5 g/dL (3.4-5.0); ALKALINE PHOSPHATASE 86 U/L (46-116); ALT (SGPT) 20 U/L (10-68); BILIRUBIN - INDIRECT 0.08 mg/dL (0.00-1.00); BILIRUBIN - TOTAL 0.12 mg/dL (0.2-1.3); PROTEIN - SERUM 6.1 g/dL (6.4-8.2); URIC ACID 4.7 mg/dL (2.6-7.2)
[2019-10-25 09:51] LABS: BILIRUBIN - DIRECT 0.04 mg/dL (0.00-0.30)
== END | disposition home or self-care (01) ==
LOC: D.LDO 08:55
PROVIDERS: ATTEND Obstetrics & Gynecology
DX: O16.9 Unspecified maternal hypertension, unspecified trimester (principal); Z3A.00 Weeks of gestation of pregnancy not specified

== ENCOUNTER 2019-10-27 10:43 | Inpatient (IN) | payer MEDICAID ==
[2019-10-27] VITALS (16 sets, daily range): BP systolic 124–167; BP diastolic 74–111; Ht 167.6 cm; Wt 114.3 kg
[~2019-10-27] VITALS: Ht 167.6 cm; Wt 114.3 kg
[2019-10-27 11:19] LABS: BASOPHILS 0.2 % (0-2); EOSINOPHILS 3.9 % (0-7); HEMATOCRIT 33.8 % (36.0-48.0); HEMOGLOBIN 10.9 g/dL (12-16); IMMATURE GRANULOCYTES 0.2 % (0-5); LYMPHOCYTES 16.2 % (15-50); MCH 26.9 pg (26.0-34.0); MCHC 32.2 g/dL (31.0-37.0); MCV 83.5 fL (80.0-100.0); MEAN PLATELET VOLUME 10.2 fL (7.4-10.4); MONOCYTES 7.3 % (2-11); NEUTROPHILS 72.2 % (40-80); PLATELET COUNT 235 10x3/uL (130-400); RBC 4.05 10x6/uL (4.00-5.40); RDW 15.6 % (11.5-14.5); WBC 9.7 10x3/uL (4.8-10.8)
[2019-10-27 11:29] LABS: CALC OSMOLALITY 278 mosm/kg (275-300); CALCIUM 8.6 mg/dL (8.5-10.1); CARBON DIOXIDE 25.2 mmol/L (21.0-32.0); CHLORIDE - SERUM 106 mmol/L (98-107); CREATININE - SERUM 0.7 mg/dL (0.6-1.3); GLUCOSE 87 mg/dL (74-106); POTASSIUM - SERUM 3.7 mmol/L (3.5-5.1); SODIUM 141 mmol/L (136-145); UREA NITROGEN 9 mg/dL (7-18); eGFR NON AFRICAN AMERICAN > 90 mL/min (90-120)
[2019-10-27 11:33] LABS: ALBUMIN 2.7 g/dL (3.4-5.0); ALKALINE PHOSPHATASE 93 U/L (46-116); ALT (SGPT) 21 U/L (10-68); BILIRUBIN - DIRECT 0.02 mg/dL (0.00-0.30); BILIRUBIN - INDIRECT 0.13 mg/dL (0.00-1.00); BILIRUBIN - TOTAL 0.15 mg/dL (0.2-1.3); PROTEIN - SERUM 6.4 g/dL (6.4-8.2); URIC ACID 4.8 mg/dL (2.6-7.2)
[2019-10-27 14:28] LABS: HEMATOCRIT 35.7 % (36.0-48.0); HEMOGLOBIN 11.4 g/dL (12-16); MCH 26.8 pg (26.0-34.0); MCHC 31.9 g/dL (31.0-37.0); RBC 4.25 10x6/uL (4.00-5.40); RDW 15.7 % (11.5-14.5)
--- NOTE | 2019-10-27 16:20 | NUR ---
TO ROOM 1276 FROM RR VIA BED. PT AWAKE AND ALERT. VERBAL RESPONSES APPRO TO QUESTIONS. VS DONE. IV LT ACS- UP 1000CC NS WITH 20 UNITS PITOCIN AT 125CC/HR PER PUMP. BIKINI LINE ABD DRESSING-CD&I. TURNER CATH WITH 50CC URINE IN BAG. ICE CAP TO ABD. SCD'S TO PUMP. PT ORIENTED TO ROOM. CALL LIGHT WITHIN REACH.
--- NOTE | 2019-10-27 16:25 | NUR ---
SLAG MIXER DILAUDID SETUP - 0.3MG BOLUS FOR PAIN GIVEN THEN SETTINGS 0.2MG Q10MIN PRN. PT INSTRUCTED ON USE. PT RATES PAIN A 9 ON SCALE OF 0-10. CO BEING HUNGRY. LIQUIDS GIVEN AT THIS TIME AND SAMIRA WELL.
--- NOTE | 2019-10-27 16:59 | NUR ---
PT TOLERATING LIQUIDS WELL. WATCHING TV AND TALKING ON TELEPHONE. SM TO MOD LOCHIA NOTED ON PAD- PAD CHANGED.
--- NOTE | 2019-10-27 17:26 | NUR ---
SITTING UP IN BED- LOOKING AT PHONE. STATES THAT PAIN IS UNCHANGED. SM TO MOD LOCHIA NOTED ON PAD- PAD CHANGED. USING EXTENSION AGENT DESIRED.
--- NOTE | 2019-10-27 18:15 | NUR ---
fundus uu/firm. mod lochia noted on pad- no clots- chico care done pads changed. pt using drop man as desired. ice cap to abd. incentive samantha used.
--- NOTE | 2019-10-27 18:35 | NUR ---
PT RATING PAIN A 10 ON SCALE OF 0-10. BUT PT STATES THAT IS IS NOT WORSE THAN ON ARRIVAL FROM RR. BP TRENDING UP. URINE OUTPUT 30CC FOR HOUR. REPORT OF VS TO DR DAY ALONG WITH PT PAIN RATING, URINE OUTPUT, SM TO MOD LOCHIA NOTED ON PAD. NEW ORDERS RECEIVED.
--- NOTE | 2019-10-27 18:40 | NUR ---
THIS RN TO PT BEDSIDE FOR FUNDAL ASSESSMENT. PT ABD INCISION NOTED TO BE C/D/I. FUNDUS NOTED TO BE FIRM, 1/U, WITH DEVIATION TO RIGHT. TURNER CATH NOTED TO BE DRAINING SCANT AMOUNT DARK YELLOW URINE TO BEDSIDE DRAINAGE. TURNER CATH BULB DEFLATED AND TUBING ADVANCED TO VERIFY PLACEMENT IN BLADDER. BULB REINFLATED AND TUBING RE-SECURED VIA STAT LOCK. PT SAMIRA WELL. NO ADDITIONAL URINE NOTED TO BE DRAINING FROM BLADDER. SCANT RUBRA LOCHIA NOTED TO PERIPADS, NO CLOTS EXPELLED WITH FUNDAL MASSAGE. POC AND ORDER FOR MAGNESIUM SULFATE THERAPY DISCUSSED WITH PT. 0.2MG BOLUS DOSE DILAUDID ADMIN VIA MEDICAL DEVICE ORDERED BY DR DAY. WILL INITIATED MAG LOADING DOSE ORDERED.
--- NOTE | 2019-10-27 19:00 | NUR ---
SHIFT ASSESSMENT COMPLETED PER FLOWSHEET. B/P REMAINS ELEVATED, MD AWARE. MG SO4 LOADING DOSE STARTED PER DAY SHIFT RN'S. FUNDUS FIRM, UU WITH RIGHT SHIFT. TURNER DRAINING TO BEDSIDE DRAINAGE WITH 150 MLS CONCENTRATED DARK YELLOW URINE. SMALL RUBRA LOCHIA, NO CLOTS NOTED. PERICARE DONE. PADS CHANGED WITH 7 MLS RUBRA LOCHIA PRESENT. BEDSIDE REPORT DONE. POC DISCUSSED WITH PT AND EDUCATED ON MG SO4 PURPOSE AND SIDE EFFECTS, VERBALIZES UNDERSTANDING AND DENIES QUESTIONS. BOWEL SOUNDS PRESENT AND HYPOACTIVE X4 QUADRANTS, DENIES PASSING FLATUS. INCENTIVE SPIROMETER DONE X5 WITH GOOD EFFORT. FINE CRACKLE TO RUL NOTED, CLEARS WITH COUGH. REPOSITIONED FROM LEFT SIDE TO BACK WITH MINIMAL ASSISTS, DAS WITHOUT EFFORT. 2+ BLE EDEMA, 1+BUE EDEMA NOTED. SCD'S ON BLE. PAIN 7-8/10, REPORTS THAT SHE WANTS TO SEE INFANT PRIOR TO USING DYNAMICS AX TECHNICAL ARCHITECT BUTTON "A LOT BECAUSE IT WILL MAKE ME SLEEPY." ENCOURAGED TO CONTINUE TO USE DYNAMICS AX TECHNICAL ARCHITECT FOR PAIN CONTROL, VERBALIZES UNDERSTANDING. BED IN LOW POSITION WITH SRUP X2. CALL LIGHT, PHONE, AND DYNAMICS AX TECHNICAL ARCHITECT BUTTON WITHIN REACH. REQUESTS TO NO LONGER REMAINS NO INFO AND ADMISSIONS NOTIFIED. NBN ALSO NOTIFIED OF PT REQUEST. WILL CONTINUE TO MONITOR.
--- NOTE | 2019-10-27 19:05 | NUR ---
magnesium sulfate 6gm in 50cc d5w infusing per pump at 150cc/hr. pt instructed on medication and effects. report to israel rice rn.
[2019-10-27 20:06] LABS: HEMATOCRIT 33.4 % (36.0-48.0); HEMOGLOBIN 10.7 g/dL (12-16); MCH 26.6 pg (26.0-34.0); MCV 83.1 fL (80.0-100.0); MEAN PLATELET VOLUME 10.1 fL (7.4-10.4); PLATELET COUNT 234 10x3/uL (130-400); RBC 4.02 10x6/uL (4.00-5.40); RDW 15.6 % (11.5-14.5); WBC 12.5 10x3/uL (4.8-10.8)
--- NOTE | 2019-10-27 20:20 | NUR ---
MAG CHECK DONE PER FLOWSHEET. PT CONVERSING ON TELEPHONE. SCD'S ON BLE. DENIES NEEDS. BED IN LOW POSITION WITH SRUP X2. CALL LIGHT, PHONE, AND RADIATION PROTECTION ENGINEER BUTTON WITHIN REACH. WILL CONTINUE TO MONITOR.
--- NOTE | 2019-10-27 20:55 | NUR ---
ICE WATER, POPICLE, AND CHICKEN BROTH PROVIDED PER PT REQUEST. BONDING WITH . DENIES ADDITIONAL NEEDS. SCD'S REMAIN ON BLE. BED IN LOW POSITION WITH SRUP X2. CALL LIGHT, PHONE, AND QC MANAGER BUTTON WITHIN REACH. WILL CONTINUE TO MONITOR.
--- NOTE | 2019-10-27 21:20 | NUR ---
MGSO4 CHECK DONE PER FLOWSHEET. INCENTIVE SPIROMETER USED BY PT X7 WITH ENCOURAGEMENT FROM RN, GOOD EFFORT NOTED. COUGH AND DEEP BREATHING DONE PER PT WITH GOOD EFFORT. PERICARE DONE. FUNDUS REMAINS FIRM, RIGHT SHIFT NOTED, UU WITH SCANT RUBRA LOCHIA NO CLOTS NOTED. BLADDER NON DISTENDED AND TURNER CONTINUES TO DRAIN TO BEDSIDE DRAINAGE. REPORTS THAT PAIN "IS EASING" RATING 6/10 FROM 8/10 WITH USE OF ROLL CAPPER. REPORTS THAT SHE IS USING ROLL CAPPER BUTTON MORE NOW THAT SHE HAS BEEN ABLE TO SEE INFANT. STATES THAT SHE DID NOT WANT TO USE IT PRIOR TO SEEING INFANT D/T FEAR OF BECOMING DROWSY. REPOSITIONED SELF TO LEFT SIDE, PILLOWS PLACED BEHIND BACK FOR COMFORT AND SUPPORT. SCD'S REMAIN ON BLE. DENIES ADDITIONAL NEEDS. BED IN LOW POSITION WITH SRUP X2. CALL LIGHT, PHONE, AND ROLL CAPPER BUTTON WITHIN REACH. WILL CONTINUE TO MONITOR.
--- NOTE | 2019-10-27 22:21 | NUR ---
MAG CHECK DONE PER FLOWSHEET. B/P REMAINS ELEVATED. PT REMAINS ASYMPTOMATIC. PERICARE DONE. REPOSITIONED INDEPENDENTLY FROM BACK TO LEFT SIDE. ICE PACK REPLACED. SCD'S ON BLE. FUNDUS REMAINS FIRM, UU WITH SLIGHT RIGHT SHIFT, SMALL AMT RUBRA LOCHIA, NO CLOTS NOTED. BLADDER NONDISTENDED, TURNER CONTINUES TO DRAIN TO BEDSIDE DRAINAGE, LIGHT YELLOW. C/O PAIN 8/10. WILL BOLUS SENIOR PRODUCT DEVELOPMENT ENGINEER PER ORDER.
--- NOTE | 2019-10-27 22:33 | NUR ---
0.4 MG HYDROMORPHONE BOLUS GIVEN FOR ORDER AND WITNESSED BY Desmond WARREN RN. PT ALSO REQUESTED TORADOL, WILL PROVIDE PER PT REQUEST AND ORDER.
--- NOTE | 2019-10-27 23:20 | NUR ---
MAG CHECK DONE PER FLOWSHEET. PAIN REASSESSMENT COMPLETED, NOW 03/20. DENIES NEED FOR ADDITIONAL INTERVENTION. INCENTIVE SPIROMENTER DONE X10 AND COUGH AND DEEP BREATHING DONE WITH GOOD EFFORT. SCD'S REMAIN ON BLE. DENIES NEEDS. BED IN LOW POSITION WITH SRUPX2. CALL LIGHT, PHONE, AND OVERLOCK OPERATOR BUTTON WITHIN REACH. SPOUSE NOW AT BEDSIDE. WILL CONTINUE TO MONITOR.
--- NOTE | 2019-10-27 23:36 | NUR ---
NEW BAG NS WITH 20 UNITS PIT HUNG TO CONTINUE TO INFUSE VIA PUMP. CONVERSING WITH SPOUSE. DENIES NEEDS. WILL CONTINUE TO MONITOR.
[2019-10-28] VITALS (9 sets, daily range): BP systolic 117–147; BP diastolic 59–88
--- NOTE | 2019-10-28 00:24 | NUR ---
MAG CHECK DONE PER FLOWSHEET. PT LOOKING AT CELL PHONE AND CONVERSING WITH SPOUSE. PAIN 03/20, REPORTS THAT THIS IS ACCEPTABLE FOR HER AT THIS TIME AND HOSPITALITY SPECIALIST IS CONTROLLING PAIN WELL NOW FOLLOWING BOLUS AND TORADOL. ICE WATER AND POPICLE PROVIDED PER REQUEST. PERICARE DONE AND PERIPADS CHANGES. TURNER CARE DONE. REPOSITIONED INDEPENDENTLY TO BACK FROM LEFT SIDE. LIGHTS OFF. SCD'S ON BLE. DRSG TO LOWER TRANSVERSE ABD INCISION REMAINS CLEAN DRY AND INTACT. WILL CONTINUE TO MONITOR. BED IN LOW POSITION WITH SRUP X2. CALL LIGHT AND PHONE WITHIN REACH.
[2019-10-28 00:27] LABS: HEMATOCRIT 31.3 % (36.0-48.0); HEMOGLOBIN 10.3 g/dL (12-16); MCHC 32.9 g/dL (31.0-37.0); MCV 82.2 fL (80.0-100.0); MEAN PLATELET VOLUME 9.8 fL (7.4-10.4); PLATELET COUNT 229 10x3/uL (130-400); RBC 3.81 10x6/uL (4.00-5.40); RDW 15.5 % (11.5-14.5); WBC 11.3 10x3/uL (4.8-10.8)
[2019-10-28 00:58] LABS: EOSINOPHILS 2 % (0-7); LYMPHOCYTES 13 % (15-50); MONOCYTES 10 % (2-11); NEUTROPHILS 75 % (40-80); PLATELET ESTIMATE NORMAL
--- NOTE | 2019-10-28 01:23 | NUR ---
CONTINUES TO C/O PAIN 04/19. 0.4 MG BOLUS HYDROMORPHONE GIVEN FROM FOOD AND BEVERAGE ASSISTANT MANAGER PER ORDER AND PT REQUEST. MAG CHECK DONE PER FLOWSHEET. CLONUS REMAINS NEG. DENIES NEEDS. SCD'S ON BLE. REPOSITIONED SELF FROM BACK TO RIGHT SIDE. COUGH AND DEEP BREATHING DONE. INCENTIVE SPIROMETER DONE X10. CALL LIGHT, PHONE, AND FOOD AND BEVERAGE ASSISTANT MANAGER BUTTON WITHIN REACH. WILL CONTINUE TO MONITOR.
--- NOTE | 2019-10-28 02:23 | NUR ---
MAG CHECK DONE PER FLOWSHEET. PERICARE DONE. FUNDUS FIRM, MIDLINE AND U1 WITH SCANT RUBRA LOCHIA TO PERIPAD. PERIPAD CHANGED. DRSG TO LOWER TRANSVERSE ABD INCISION REMAINS CLEAN, DRY AND INTACT. CLONUS REMAINS NEG. AROUSED TO VOICE UPON ENTRY TO ROOM. PAIN 3/10. ICE WATER PROVIDED. DENIES ADDITIONAL NEEDS. BED IN LOW POSITION WITH SRUP X2. CALL LIGHT, PHONE, AND HEADEND TECHNICIAN BUTTON WITHIN REACH. REPOSITIONED BACK TO BACK INDEPENDENTLY, INCENTIVE SPIROMETER DONE X10 AND COUGH AND DEEP BREATHING DONE WITH GOOD EFFORT. SCD'S REMAIN ON BLE. WILL CONTINUE TO MONITOR.
--- NOTE | 2019-10-28 03:23 | NUR ---
MAG CHECK DONE PER FLOWSHEET. PERICARE DONE. PADS, CHUX, AND TOWELS CHANGED. FUNDUS REMAINS FIRM, SLIGHT RIGHT SHIFT NOTED, SCANT RUBRA LOCHIA, NO CLOTS NOTED. TURNER DRAINING TO BEDSIDE DRAINAGE. BED PLACED IN LOW POSITION WITH SRUP X2. CALL LIGHT AND PHONE WITHIN REACH. WILL CONTINUE TO MONITOR.
--- NOTE | 2019-10-28 03:41 | NUR ---
SENIOR REACTOR OPERATOR SYRINGE EMPTY. NEW SYRINGE PLACED PER ORDER. PAIN 04/19. REPORTS THAT SHE FEELS NEED TO PASS FLATUS BUT HAS BEEN UNABLE TO DO SO. DISCUSSED INTERVENTIONS FOR PASSING FLATUS INCLUDING FREQUENT POSITION CHANGES, AND LAYING IN LEFT RECUMBENT POSITION. PT AGREEABLE TO REPOSITION TO L RECUMBENT, RN ASSISTED TO POSITION.
--- NOTE | 2019-10-28 03:47 | NUR ---
RN REMAINED AT BEDSIDE WITH PT SINCE CHANGING ASH HANDLER SYRINGE. PT REQUESTS TO SIT HOB UP, STATES THAT SHE FEELS LIKE HER CHEST IS "FEELING HEAVY, MY MOUTH IS DRY, AND I FEEL LIKE I CAN'T BREATHE." STATES THAT SHE HAS TO SIT UP OR STAND. ASSISTED TO BACK, AND HOB UP TO 90 DEGREES. PT BEGAN PULLING AT IV LINES AND LIFTING BLE OFF OF BED. STATES THAT SHE NEEDS TO SIT UP OR STAND UP. ASSISTED TO SITTING ON EDGE OF BED AND ENCOURAGED SLOW DEEP BREATHS, GOWN, PULSE OX, AND B/P CUFF OFF PER PT. SCD'S OFF PER REQUEST. SMALL SLOW SIPS OF ICE WATER PROVIDED. FAN PROVIDED AND ROOM TEMP DECREASED. ASSISTED BACK TO BED. GOWN CHANGED. SCD'S OFF PER PT REQUEST. SALINE PROVIDED PER PT REQUEST FOR DRY NOSTRILS. RN REMAINED AT BEDSIDE FOR WHOLE EPISODE, PT REPORTS FEELING BETTER AT 0408 AND REQUEST BE BROUGHT TO ROOM FOR BONDING. BED LEFT IN LOW POSITION WITH SRUP X2. CALL LIGHT AND PHONE WITHIN REACH. WILL CONTINUE TO MONITOR AND REPORT TO DR. DAY.
--- NOTE | 2019-10-28 04:28 | NUR ---
REPORT TO DR. DAY REGARDING PT REQUEST FOR PROAIR INHALER AND PT'S INCREASED ANXIETY AND BEHAVIOR. B/P'S AND OUTPUT REVIEWED. ORDERS REC'D. WILL UPDATE PT ON CHANGES IN POC.
--- NOTE | 2019-10-28 04:30 | NUR ---
INFANT TAKEN TO MOM VIA OPEN CRIB TO BE FEED. BABY BANDS CHECKED AND VERIFIED WITH MOM. PLACED IN MOM'S ARMS AND BOTTLE GIVEN TO MOM. OPEN CRIB PLACED AT MOM'S BEDSIDE. MOM DENIES ANY COMPLAINTS OR NEEDS AT THIS TIME. INSTRUCTED PT TO NOTIFY NURSE WITH ANY PROBLEMS, NEEDS, OR CONCERNS. VERBALIZED UNDERSTANDING. BED IN LOW POSITION. SR UP X2. CALL LIGHT WITHIN PT'S REACH.
--- NOTE | 2019-10-28 04:35 | NUR ---
PT UPDATED ON CHANGES IN POC, VERBALIZES UNDERSTANDING. CURRENTLY BOTTLE FEEDING INFANT AND REQUESTS TO HOLD BENADRYL AND NORCO UNTIL SHE HAS COMPLETED BOTTLE FEEDING. MG SO4 STOPPED. PIV SL AT THIS TIME. ICE WATER PROVIDED. DENIES ADDITIONAL NEEDS. PT APOLOGETIC FOR "PANIC ATTACK" AND APPRECIATIVE OF CARE REC'D. BED IN LOW POSITION WITH SRUP X2. CALL LIGHT AND PHONE WITHIN REACH. WILL CONTINUE TO MONITOR.
--- NOTE | 2019-10-28 04:45 | NUR ---
TORADOL GIVEN PER ORDER AND PT REQUEST. C/O PAIN 6-04/19. DENIES ADDITIONAL NEEDS. CONTINUES TO BOTTLE FEED . WILL CONTINUE TO MONITOR.
--- NOTE | 2019-10-28 05:08 | NUR ---
SPOKE WITH LIAM RT REGARDING ORDER FOR INHALER, PER LIAM THE HOSPITAL NO LONGER STOCKS INHALERS AND ORDER HAS TO BE CONVERTED TO EQUILVENT UPDRAFT. WILL DISCUSS WITH PT AND NOTIFY RT IF PT DESIRES UPDRAFT.
--- NOTE | 2019-10-28 05:19 | NUR ---
SPOKE WITH PT REGARDING BEING UNABLE TO GET INHALER BUT HAVING EQUIVALENT UPDRAFT, PT AGREEABLE TO UPDRAFT. LIAM RT NOTIFIED AND WILL COME TO UNIT FOR TREATMENT.
--- NOTE | 2019-10-28 05:59 | NUR ---
VSS. FUNDUS FIRM, RIGHT SHIFT, U1 WITH SMALL RUBRA LOCHIA, NO CLOTS NOTED. BLADDER NONDISTENDED. NORCO AND BENADRYL GIVEN PER ORDER AND PT REQUEST. PT EDUCATED ON MEDS AND VERBALIZES UNDERSTANDING.
[2019-10-28 06:09] LABS: RAPID PLASMA REAGIN Non Reactive (Non Reactive)
--- NOTE | 2019-10-28 06:10 | NUR ---
TURNER CATH D/C'D PER ORDER. PERICARE DONE. PERIPADS AND CHUX CHANGED. INSTRUCTED TO CALL RN FOR ASSISTANCE OOB AND TO BR FIRST TIME, VERBALIZES UNDERSTANDING. 425 MLS LIGHT YELLOW URINE EMPTIED FROM TURNER. BED IN LOW POSITION WITH SRUP X2. CALL LIGHT AND PHONE WITHIN REACH.
--- NOTE | 2019-10-28 06:39 | NUR ---
PAIN REASSESSMENT COMPLETED. RESTING QUIETLY IN SEMI-FOWLERS POSITION WITH EYES CLOSED. RESP REGULAR AND UNLABORED, NO S/S OF DISTRESS NOTED. PT NOT DISTURBED TO ALLOW FOR REST. BED IN LOW POSITION WITH SRUP X2. CALL LIGHT AND PHONE WITHIN REACH. WILL CONTINUE TO MONITOR.
[2019-10-28 06:50] LABS: BASOPHILS 0.1 % (0-2); EOSINOPHILS 2.3 % (0-7); HEMATOCRIT 30.8 % (36.0-48.0); HEMOGLOBIN 9.9 g/dL (12-16); IMMATURE GRANULOCYTES 0.2 % (0-5); LYMPHOCYTES 8.1 % (15-50); MCH 26.3 pg (26.0-34.0); MCHC 32.1 g/dL (31.0-37.0); MCV 81.9 fL (80.0-100.0); MEAN PLATELET VOLUME 9.8 fL (7.4-10.4); MONOCYTES 7.4 % (2-11); NEUTROPHILS 81.9 % (40-80); PLATELET COUNT 212 10x3/uL (130-400); RBC 3.76 10x6/uL (4.00-5.40); RDW 15.7 % (11.5-14.5); WBC 10.1 10x3/uL (4.8-10.8)
--- NOTE | 2019-10-28 07:04 | NUR ---
BEDSIDE REPORT ATTEMPTED. PT RESTING QUIETLY WITH EYES CLOSED. RESP REGULAR AND UNLABORED, NO S/S OF DISTRESS NOTED. PT NOT DISTURBED TO ALLOW FOR REST. REPORT GIVEN TO Tamir ELLSWORTH RN.
--- NOTE | 2019-10-28 07:40 | NUR ---
CRITICAL MG LEVEL PHONED TO THIS RN FROM LAB STAFF, 4.3, DR DAY ON UNIT AND AWARE OF LEVEL, MAGNESIUM SULFATE DISCONTINUED RECENTLY. WILL MONITOR PT.
--- NOTE | 2019-10-28 07:45 | NUR ---
AM ASSESSMENT COMPLETED, PT DROWSY, VSS, AFEBRILE, RESP EVEN AND UNLABORED, HEART RRR WITHOUT MURMUR, ABD MILDLY DISTENDED BUT SOFT, NO FLATUS YET REPORTED. INCISION WITH SURGICAL DRESSING INTACT TO LOW TRANSVERSE ABDOMEN AND NO DRAINAGE NOTED AT THIS TIME. FUNDUS FIRM AT U/2 AND MIDLINE, LOCHIA RUBRA MODERATE AMOUNT, PERICARE COMPLETED. DAS FREELY, NEGATIVE SALVADOR'S SIGN B LE. CAP REFILL LESS THAN 2 SECS. REVIEWED PLAN OF CARE TODAY, WHITEBOARD UPDATED IN PT ROOM. ENCOURAGED TCDB, USE OF ANXIETY-PAIN REDUCING NONPHARMALOGICAL METHODS TO MANAGE PAIN/ANXIETY, NEED TO AMBULATE IN HALLS TODAY, OOB TO BR FOR VOIDING AFTER BREAKFAST, USE OF ASSIST WHEN GETTING OOB, POST-MAGNESIUM THERAPY MANAGEMENT, NEED FOR SLEEP TODAY SINCE NOT SLEEPING MUCH LAST PM. PT STATES UNDERSTANDING OF ALL INFORMATION REVIEWED, WILL MONITOR FOR CHANGE IN STATUS. CALL LIGHT IN EASY REACH, BED IN LOW POSITION, LIGHTS DIMMED, SIDE RAILS UP X2.
--- NOTE | 2019-10-28 07:50 | NUR ---
DR DAY TO PT ROOM, ABD DRESSING REMOVED, INCISION CDI WITHOUT REDNESS, WARMTH, NEW DRAINAGE, OR SWELLING. GAUGE PLACED ALONG INCISION SITE IN ABDOMINAL FOLD TO MAINTAIN DRYNESS, MD REVIEWS PLAN OF CARE WITH PT. REGULAR TRAY TO PT ROOM, NOW IN PT ARMS AFTER Mansi POWER, STAPLER MACHINE ARRIVES WITH INFANT VIA ROLLING CRIB. NAD NOTED WITH PT OR . CALL LIGHT IN EASY REACH, DENIES FURTHER NEEDS OR CONCERNS. WILL MONITOR.
--- NOTE | 2019-10-28 08:26 | NUR ---
PT ASSISTED OOB TO BR, VOIDS 600 ML CLEAR URINE, THIS RN ASSISTED WITH PERICARE, ASSISTED BACK TO BED, POSITIONED TO COMFORT, PT NOW EATING BREAKFAST, NO CONCERNS, INFANT TO NURSERY PER Mansi POWER LPN. CALL LIGHT IN EASY REACH. WILL MONITOR.
--- NOTE | 2019-10-28 10:30 | NUR ---
PT RESTING WITH EYES CLOSED, NAD NOTED. RESP EVEN AND UNLABORED. CONTINUE TO MONITOR.
--- NOTE | 2019-10-28 11:11 | NUR ---
PT C/O INCISIONAL/ABD PAIN ACHING, CRAMPING. PRN MEDS GIVEN WITH SIPS APPLE JUICE, DENIES OTHER NEEDS. ENCOURAGED AMBULATION IN HALLS. WILL MONITOR.
--- NOTE | 2019-10-28 11:50 | NUR ---
ASSISTED OOB TO SHOWER WITH CHLOROHEXADINE SOAP, FRIEND AT SIDE TO MONITOR, USING SHOWER CHAIR. LINENS CHANGED. NAD NOTED, DENIES NEEDS OR CONCERNS.
--- NOTE | 2019-10-28 12:05 | NUR ---
PAIN REASSESSMENT COMPLETED, RATES PAIN 2/10 ON NUMERIC PAIN SCALE. DENIES NEEDS. CALL LIGHT IN EASY REACH. WILL MONITOR.
--- NOTE | 2019-10-28 13:36 | NUR ---
FAMILY AT BS. PT SMILING, DENIES NEEDS OR CONCERNS ON ROUNDS. WILL MONITOR.
--- NOTE | 2019-10-28 14:46 | NUR ---
ROUNDS COMPLETED, PT WITH IN ARMS, FAMILY AT BS. APPLE JUICE PROVIDED. NO OTHER NEEDS VOICED AT THIS TIME. WILL MONITOR.
--- NOTE | 2019-10-28 15:30 | NUR ---
ROUNDS COMPLETED, FAMILY AT BS, NAD NOTED. VSS. AFEBRILE. FUNDUS FIRM AT U/2 AND MIDLINE, AMBULATORY IN ROOM, DENIES NEEDS OR CONCERNS, WILL MONITOR. CALL LIGHT IN EASY REACH OF PT.
--- NOTE | 2019-10-28 16:40 | NUR ---
ROUNDS COMPLETED, NAD NOTED, RESP EVEN AND UNLABORED, CALL LIGHT IN EASY REACH. WILL MONITOR.
--- NOTE | 2019-10-28 17:42 | NUR ---
PT C/O INCISIONAL PAIN, RATES 7 ON NUMERIC PAIN SCALE, PRN MOTRIN/NORCO GIVEN WITH SIPS APPLE JUICE. DENIES OTHER NEEDS. STATES PLANNING FEEDING AND THEN GETTING SOME REST. CALL LIGHT IN EASY REACH, WILL MONITOR.
--- NOTE | 2019-10-28 18:11 | NUR ---
INFANT TO NURSERY, PT DENIES OTHER NEEDS, VOIDING WITHOUT DIFFICULTY, PAIN NOW 3 OR 4 ON NUMERIC PAIN SCALE, PERSONAL BELONGINGS ON BST ADJACENT TO BED, FUNDUS FIRM AT U/2 AND MIDLINE, GAUZE IN ABDOMINAL FOLD OVER INCISION SITE. NO DRAINAGE, REDNESS, OR WARMTH NOTED TO SITE. WILL MONITOR. LIGHTS DIMMED PER PT REQUEST.
--- NOTE | 2019-10-28 19:48 | NUR ---
VSS. PT COMPLAINS OF 6/10 PAIN TO ABDOMEN, BUT STATES THAT SHE DOES NOT WANT ANY PAIN MEDS AT THIS TIME. FUNDUS IS FIRM, MIDLINE, 2 BELOW, SCANT RUBRA LOCHIA NOTED ON PAD. PT'S DONAL AND SUTURES IN PLACE, INCISION IS CLEAN AND DRY, EDGES ARE WELL APPROXIMATED, PT STATES THAT HER NEEDS ARE CURRENTLY MET AT THIS TIME. PT'S BED IN LOWEST POSITON, SIDE RAILS UP X2, PHONE AND CALL LIGHT WITHIN REACH.
--- NOTE | 2019-10-28 21:40 | NUR ---
PT MOVED TO [facility]OMEN[facility]S SERVICES ROOM 23 FOR CONTINUOUS CARE.
--- NOTE | 2019-10-28 22:15 | NUR ---
TOOK REPORT FROM LESLIE WARREN. PT IS IN BED NOW WITH NO C/O. FOB IS HOLDEING THE BABY. PT REPORTS LIGHT BLEEDING. FUNDUS FIRM. IV INFUSING IN THE LEFT ARM AT THIS TIME. SITE LOOKS GOOD.
[2019-10-29 00:14] VITALS: BP 136/78
--- NOTE | 2019-10-29 00:34 | NUR ---
VS TAKEN AND RECORDED. PT HAS NO C/O AT THIS TIME. HAS BEEN ASKING FOR IV TO BE TAKEN OUT. LESLIE WARREN FROM L/D REMOVED IV. COVERED SITE WITH STERILE GAUZE.
--- NOTE | 2019-10-29 01:30 | NUR ---
PT IS TAKING HER PAIN PILL AND AMBIEN. SHE DIDN'T WANT TO TAKE THE SLEEPING MEDS BUT TOLD HER THAT HER DRCristi HAD LEFT SPECIFIC INSTRUCTION FOR HER TO TAKE. SHE AGREED AND TOOK MEDS.
--- NOTE | 2019-10-29 02:18 | NUR ---
ROUNDS COMPLETED. PT IS UP IN THE BR AT THIS TIME. SHE STATES SHE IS DOING WELL. SHE TOLD ME THAT WHEN SHE GETS UP SHE FEELS LIKE HER INSIDES ARE "COMING OUT" SHE HAS A PAD IN PLACE THAT MAKES HER FEEL BETTER.
[2019-10-29 04:17] VITALS: BP 114/73
--- NOTE | 2019-10-29 04:24 | NUR ---
PT IS SLEEPING VERY WELL. AROUSED TO TAKE VS THEN RIGHT BACK TO SLEEP. AWAKENED PT VERY GENTLY SO NOT TO STARTLE OR SCARE HER.
--- NOTE | 2019-10-29 06:19 | NUR ---
PT IS STILL SLEEPING. SHE HAS BEEN ABLE TO GET SOME REST THIS SHIFT. PT SLEEPS WITH LIGHTS ON. NO C/O
--- NOTE | 2019-10-29 08:00 | NUR ---
DR. DAY AT [facility], TO PT'S ROOM TO SPEAK WITH PT. VERBAL ORDER RECEIVED TO DISCHARGE PT HOME, MAY ROOM IN IF BABY IS NOT DISCHARGED HOME TODAY.
[2019-10-29 08:15] VITALS: BP 152/86
--- NOTE | 2019-10-29 08:32 | NUR ---
PHONE CALL MADE TO DR. DAY TO REPORT BP READING, AND PT IS ASKING IF WE ARE GOING TO GIVE HER BP MEDS THIS MORNING. AFTER REVIEWING BP'S AT [facility] STATES "TELL HER TO CUT HER TO CUT HER LABETALOL TO 100 MG ONE PO TID".
[2019-10-29] MEDS ORDERED: HYDROCODON-ACE1 EA10 PO (08:51)
[2019-10-29] MEDS ORDERED: IBUPROFEN600 MG PO (08:52)
[2019-10-29] MEDS ORDERED: NORMODYNE / TR100 MG PO (08:52)
--- NOTE | 2019-10-29 10:20 | NUR ---
PT CALLS OUT MANOMETER TECHNICIAN LIGHT AND STATES "I NEED SOMETHING FOR PAIN, THAT BARELY WORKED".
--- NOTE | 2019-10-29 10:30 | NUR ---
DR. DAY PAGED, AND RETURNS CALL. REPORT TO MD THAT PT STATES SHE IS STILL HURTING IN HER INCISIONAL AREA, AND ABD CRAMPING. MED ADM RECORD REVIEWED WITH . WANTS PT EDUCATED ON TAKING PAIN EVERY 4 HRS TO ACHIEVE MAX EFFICACY, HE STATES HE REVIEWED THIS VERY THING WITH THE PT THIS MORNING, AND ENCOURAGED HER TO NOT WAIT LONGER GAPS THAN EVERY 4 HRS BETWEEN PAIN MED DOSES. TO ROOM TO EXPLAIN THIS AGAIN TO PT, BEFORE I COULD FINISH SPEAKING, PT HAS DOZED OFF AND IS SNORING NOW. SRUP 2, CALL LIGHT AND PHONE WITHIN REACH. WHITE BOARD UPDATED WITH TIMES OF MED ADM.
--- NOTE | 2019-10-29 11:45 | NUR ---
DIETARY SERVES LUNCH TRAY. PT DENIES ALL NEEDS AT THIS TIME. SRUP X2, CALL LIGHT AND PHONE WITHIN REACH.
--- NOTE | 2019-10-29 13:50 | NUR ---
SITTING IN HIGH FOWLERS POSITION BOTTLE FEEDING INFANT. C/O ABD AND INCISIONAL DISCOMFORT 04/19, NORCO GIVEN PER ORDER AND PT REQUEST. QUESTIONS REGARDING ACKNOWLEDGEMENT OF PATERNITY ANSWERED. STATES THAT SIGNIFICANT OTHER WILL BE TO UNIT WITHIN AN HOUR FOR IT TO BE DONE. DENIES ADDITIONAL NEEDS. STATES THAT SHE WILL USE CALL LIGHT WHEN IS DONE EATING FOR DISCHARGE INSTRUCTIONS. BED IN LOW POSITION WITH SRUP X2. CALL LIGHT AND PHONE WITHIN REACH. WILL CONTINUE TO MONITOR.
--- NOTE | 2019-10-29 15:10 | NUR ---
DISCHARGE INSTRUCTIONS EXPLAINED TO PT, COPIES PROVIDED FOR D/C INSTRUCTION SHEETS, EMERGENCY INFORMATION SHEETS, C/S AND BLOOD ADM INFORMATION SHEETS, AND PRESCRIPTIONS. PT DENIES QUESTIONS. WILL ADMINISTER LABETALOL AND MOTRIN PER PT REQUEST PRIOR TO LEAVING UNIT. SAMMIE SCHWARTZ LPN AT BEDSIDE REVIEWING D/C INSTRUCTIONS.
--- NOTE | 2019-10-29 15:25 | NUR ---
C/O ABD AND INCISIONAL PAIN 04/19. MOTRIN GIVEN. LABETAOLOL GIVEN PER PT REQUEST. PT'S MED REQ UPDATED WITH NEXT TIME MEDS ARE DUE, VERBALIZES UNDERSTANDING. DRESSING INFANT AND GATHERING BELONGINGS. WILL CALL USING CALL LIGHT FOR W/C OFF UNIT.
--- NOTE | 2019-10-29 15:46 | NUR ---
PT CALLS FOR W/C OFF UNIT, REPORTS TO RN THAT SHE IS NAUSEATED. REPORTED TO DR. DAY. ORDERS REC'D TO GIVE 4 MG PO ONE TIME AND CONTINUE TO D/C PLANNED.
--- NOTE | 2019-10-29 15:51 | NUR ---
ZOFRAN GIVEN PER ORDER. PT UP TO W/C AND TAKEN OFF UNIT TO AWAITING PRIVATE VECHILE IN STABLE CONDITION.
== END 2019-10-29 15:51 | disposition home or self-care (01) | DRG 788 ==
LOC: D.LDO 10:43 → D.LD 13:00 → D.WS 10-28 21:15
PROVIDERS: ADMIT Obstetrics & Gynecology; ATTEND Obstetrics & Gynecology
PROC: 10D00Z1 Extraction of Products of Conception, Low, Open Approach (ICD-10-PCS; principal; 2019-10-27 12:00)
DX: O13.4 Gestational [pregnancy-induced] hypertension without significant proteinuria, complicating childbirth (principal); Z3A.36 36 weeks gestation of pregnancy; Z37.0 Single live birth